=== PATIENT | male | born 1955 | race Caucasian/White ===

== ENCOUNTER 2020-07-28 10:11 | Inpatient (IN) | payer OTHER ==
[~2020-07-28] VITALS: Ht 188 cm; Wt 93.9 kg
[~2020-07-28 10:11] MED LIST: AMLODIPINE BESYL5 MG PO; LOSARTAN POTAS100 MG PO; METOPROLOL SUCC50 MG PO
[2020-07-28] MEDS ORDERED: PANTOPRAZOLE 40 MG 10ML VIAL IV STA (10:24)
[2020-07-28] MEDS ORDERED: ONDANSETRON HCL INJ 2MG/ML 2ML 2 MG/ML VIAL IV STA (10:24)
[2020-07-28] MEDS ORDERED: MORPHINE SULFATE INJ 4 MG/ML INJ 1ML IV STA (10:49)
[2020-07-28 11:18] LABS: BASOPHILS % 0.3 % (0.0-1.0); EOSINOPHILS % 0.1 % (0.0-6.0); HEMATOCRIT 36.6 % (38.2-49.6); HEMOGLOBIN 11.9 g/dL (14.0-18.0); LYMPHOCYTES # (AUTO) 0.5 (1.0-3.2); LYMPHOCYTES % 6.1 % (18.0-39.1); MEAN CORPUSCULAR HEMOGLOBIN 28.3 pg (28-32); MEAN CORPUSCULAR HGB CONC 32.5 g/dL (31-35); MEAN CORPUSCULAR VOLUME 87.1 fL (81-99); MONOCYTES # (AUTO) 0.4 (0.2-0.8); MONOCYTES % 5.3 % (4.4-11.3); NEUTROPHILS # (AUTO) 6.6 (2.1-6.9); NEUTROPHILS % 87.3 % (38.7-80.0); PLATELET COUNT 444 x10e3/uL (140-360); RED CELL DISTRIBUTION WIDTH 24.8 % (11.7-14.4)
[2020-07-28 11:20] LABS: CLARITY,URINE CLEAR (CLEAR); COLOR,URINE YELLOW (YELLOW)
[2020-07-28 11:21] LABS: KETONES,URINE NEGATIVE (NEGATIVE); LEUKOCYTE ESTERASE ,URINE NEGATIVE (NEGATIVE); NITRITE,URINE NEGATIVE (NEGATIVE); PROTEIN,URINE DIPSTICK 1+ (NEGATIVE); URINE UROBILINOGEN 1 mg/dL (0.2 - 1)
[2020-07-28 11:22] LABS: BILIRUBIN,URINE LARGE (NEGATIVE)
[2020-07-28 11:25] LABS: PROTHROMBIN TIME 13.7 seconds (11.9-14.5)
[2020-07-28 11:26] LABS: PARTIAL THROMBOPLASTIN TIME 26.1 seconds (23.8-35.5)
[2020-07-28 11:30] LABS: BACTERIA,URINE RARE /HPF; EPITHELIAL CELLS,URINE FEW /LPF; RBC,URINE 0-5 /HPF (0-5); WBC,URINE (MAN) 0-5 /HPF (0-5)
[2020-07-28 11:37] LABS: ALBUMIN 3.2 g/dL (3.5-5.0); ALBUMIN/GLOBULIN RATIO 1.1 (0.8-2.0); ANION GAP 23.9 mmol/L (8-16); CALCIUM 11.7 mg/dL (8.4-10.2); CREATININE, SERUM 3.51 mg/dL (0.72-1.25); MAGNESIUM 2.1 MG/DL (1.3-2.1); POTASSIUM 4.9 mmol/L (3.5-5.1)
--- NOTE | 2020-07-28 11:37 | Diagnostic Imaging Report ---
EXAMINATION: CHEST SINGLE (PORTABLE) INDICATION: ^ABD PAIN ^20200728 ^1056 COMPARISON: None FINDINGS: AP view TUBES and LINES: None. LUNGS: Lungs are well inflated. No focal lung consolidation. There is no evidence of pneumonia or pulmonary edema. PLEURA: No pleural effusion or pneumothorax. HEART AND MEDIASTINUM: The cardiomediastinal silhouette is unremarkable. BONES AND SOFT TISSUES: No acute osseous lesion. Soft tissues are unremarkable. UPPER ABDOMEN: No free air under the diaphragm. IMPRESSION: No acute thoracic radiographic abnormality. Signed by: Carmelo Nolasco MD on 07/28/2020 11:34 AM
[2020-07-28 11:43] LABS: CREATINE KINASE MB 0.9 ng/mL (0-5.0)
[2020-07-28] MEDS ORDERED: SODIUM CHLORIDE 0.9% 500ML 500 ML IV ONE (11:45)
[2020-07-28] MEDS ORDERED: VANCOMYCIN 1GM/NS 250 ML 250 ML IV ONE (11:45)
[2020-07-28] MEDS ORDERED: CEFEPIME 1GM/NS 0.9% 50 ML 50 ML IV SCH (11:45)
[2020-07-28] MEDS ORDERED: MORPHINE SULFATE INJ 4 MG/ML INJ 1ML IV PRN (13:15)
--- OUTSIDE RECORDS SUMMARY | 2020-07-28 13:26 | XMS REPORT | Continuity of Care Document ---
Author Author [facility] Organization [facility] Address [address] [place] [address] Dr. Aquino. [address] [place] [id number] Phone Unavailable Care Team Providers Care Dentistry Professor Name Role Phone Deepika SALAZAR Attphys Unavailable Problems This patient has no known problems. Allergies, Adverse Reactions, Alerts This patient has no known allergies or adverse reactions. Medications This patient has no known medications. Procedures This patient has no known procedures. Results Test Description Test Time Test Comments Results Result Comments Source CHEST SINGLE (PORTABLE) 2020-07-28 11:33:[address] [address] Patient Name: SEPIDEH BERMUDEZ MR #: [id number] : 1955 Age/Sex: 64/M Req #: [id number] Adm Physician: Ordered by: TRISTIN SALAZAR MD Report #: [id number] Location: ER Room/Bed: Procedure: [id number] DX/CHEST SINGLE (PORTABLE) Exam Date: 07/28/20 Exam Time: 105 REPORT STATUS: Signed EXAMINATION: CHEST SINGLE (PORTABLE) INDICATION: ABD PAIN 20200728 105 COMPARISON: None FINDINGS: AP view TUBES and LINES: None. LUNGS: Lungs are well inflated. No focal lung consolidation. There is no evidence of pneumonia or pulmonary edema. PLEURA: No pleural effusion or pneumothorax. HEART AND MEDIASTINUM: The cardiomediastinal silhouette is unremarkable. BONES AND SOFT TISSUES: No acute osseous lesion. Soft tissues are unremarkable. UPPER ABDOMEN: No free air under the diaphragm. IMPRESSION: No acute thoracic radiographic abnormality. Signed by: Dorie Zavala MD on 07/28/2020 11:34 AM Dictated By: DORIE ZAVALA MD 1134 Transcribed By: XIAO on 07/28/20 1134 COPY TO: TRISTIN SALAZAR MD
--- NOTE | 2020-07-28 13:40 | Diagnostic Imaging Report ---
EXAM: CT Abdomen and Pelvis WITHOUT intravenous contrast INDICATION: Abdominal pain, jaundice COMPARISON: Chest radiograph of earlier the same day TECHNIQUE: Abdomen and pelvis were scanned utilizing a multidetector helical scanner from the lung base to the pubic symphysis without administration of IV contrast. Coronal and sagittal reformations were obtained. IV CONTRAST: None ORAL CONTRAST: None COMPLICATIONS: None RADIATION DOSE: Total DLP: 483 mGy*cm Dose modulation, iterative reconstruction, and/or weight based adjustment of the mA/kV was utilized to reduce the radiation dose to as low as reasonably achievable. FINDINGS: LOWER THORAX: Normal. HEPATOBILIARY: Innumerable hypodense masses throughout the right and left liver, the largest of which measures up to approximately 6 cm. SPLEEN: No splenomegaly. PANCREAS: Pancreatic head not optimally visualized on this noncontrast study. No definite mass or ductal dilation. ADRENALS: No adrenal nodules. KIDNEYS/URETERS: No hydronephrosis, stones, or solid mass lesions. PELVIC ORGANS/BLADDER: Unremarkable. PERITONEUM / RETROPERITONEUM: Moderate volume ascites in the abdomen and pelvis. LYMPH NODES: No lymphadenopathy. VESSELS: Mild atherosclerotic calcifications of the nonaneurysmal abdominal aorta and major branches. GI TRACT: Segmental wall thickening of the ascending and proximal transverse colon. No bowel obstruction. BONES AND SOFT TISSUES: Unremarkable. IMPRESSION: Innumerable hypodense masses throughout the right and left liver measure up to 6 cm, highly concerning for metastatic disease. Segmental wall thickening of the ascending and proximal transverse colon without bowel obstruction. Findings may be infectious or inflammatory in etiology however neoplasm cannot be excluded, particularly in the setting of liver metastases. Moderate ascites. Signed by: Rafia Rajan MD on 07/28/2020 1:36 PM
--- NOTE | 2020-07-28 14:47 | Emergency Department Note ---
History of Present Illnes History of Present Illness Chief Complaint: Abdominal Complaints History of Present Illness This is a 64 year old male PATIENT IN FROM HOME WITH COMPLAINTS OF ABDOMINAL PAIN X 5 DAYS, ABDOMINAL DISTENTION X 2 DAYS. PATIENT WITH DISTENDED ABDOMEN, JAUNDICED. PATIENT RATES PAIN 10/10. STATES HE IS SUPPOSED TO HAVE A COLONOSCOPY TOMORROW FOR EVALUATION OF POSSIBLE COLON CANCER. PATIENT ALERT AND ORIETNED, RESP EVEN AND NONLABORED. Historian: Patient, Manager Assisted Living/EMS Arrival Mode: [place] Cell Repairer Required: No Onset (how long ago): day(s) (PAIN X 5 DAYS, ABD DISTENSION X 2 DAYS) Location: ABDOMEN Quality: PAIN Radiation: Reports non-radiation Severity: moderate Onset quality: gradual Timing of current episode: constant Progression: worsening Chronicity: new Context: Denies recent illness Relieving factors: none Exacerbating factors: none Associated symptoms: Reports denies other symptoms, Reports other (POSITIVE WEIGHT LOSS) Treatments prior to arrival: none Past Medical/Family History Physician Review I have reviewed the patient's past medical and family history. Any updates have been documented here. Past Medical History Recent Fever: No Clinical Suspicion of Infectio: No New/Unexplained Change in Ment: No Past Medical History: Hypertension Past Surgical History: None Social History Smoking Cessation: Never Smoker Counseling Performed: No Alcohol Use: None Any Illegal Drug Use: No TB Exposure/Symptoms: No Physically hurt or threatened: No Family History Family history of heart diseas: No Other Any Pre-Existing Lines (PICC,: No Review of Systems Review of Systems Constitutional: Reports no symptoms EENTM: Reports no symptoms Cardiovascular: Reports no symptoms Respiratory: Reports no symptoms Gastrointestinal: Reports as per HPI Genitourinary: Reports no symptoms Musculoskeletal: Reports no symptoms Integumentary: Reports no symptoms Neurological: Reports no symptoms Psychological: Reports no symptoms Endocrine: Reports no symptoms Hematological/Lymphatic: Reports no symptoms Physical Exam Related Data Allergies: Coded Allergies: No Known Allergies (Unverified , 07/21/20) Triage Vital Signs Vital Signs Date Time Temp Pulse Resp B/P (MAP) Pulse Ox O2 Delivery O2 Flow Rate FiO2 07/28/20 10:11 98.2 96 19 127/42 100 Room Air Vital signs reviewed: Yes Physical Exam CONSTITUTIONAL Constitutional: Present cachectic, Present ill appearing (CHRONICALLY, NO ACUTE DISTRESS) HENT HENT: Present normocephalic, Present atraumatic, Present oropharynx clear/moist, Present nose normal HENT L/R: Present left ext ear normal, Present right ext ear normal EYES Eyes: Reports PERRL, Reports scleral icterus NECK Neck: Present ROM normal PULMONARY Pulmonary: Present effort normal, Present breath sounds normal CARDIOVASCULAR Cardiovascular: Present regular rhythm, Present heart sounds normal, Present capillary refill normal, Present normal rate GASTROINTESTINAL Abdominal: Present soft, Present distension (MARKED, WITH FLUID WAVE), Present tender (MODERATE DIFFUSE), Present guarding; Absent rebound, Absent left CVA tenderness, Absent right CVA tenderness GENITOURINARY Genitourinary: Present exam deferred SKIN Skin: Present warm, Present dry, Present jaundiced MUSCULOSKELETAL Musculoskeletal: Present ROM normal NEUROLOGICAL Neurological: Present alert, Present oriented x 3, Present no gross motor or sensory deficits PSYCHOLOGICAL Psychological: Present mood/affect normal, Present judgement normal Results Laboratory Result Diagram: 07/28/20 1040 07/28/20 1040 Laboratory Laboratory Tests Test 07/28/20 10:53 07/28/20 10:40 Urine Color Yellow (YELLOW) Urine Clarity Clear (CLEAR) Urine pH 5.5 (5 - 7) Urine Specific Wayne 1.015 (1.010-1.025) Urine Protein 1+ (NEGATIVE) Urine Glucose (UA) Negative (NEGATIVE) Urine Ketones Negative (NEGATIVE) Urine Blood Negative (NEGATIVE) Urine Nitrite Negative (NEGATIVE) Urine Bilirubin Large (NEGATIVE) Urine Urobilinogen 1 mg/dL (0.2 - 1) Urine Leukocyte Esterase Negative (NEGATIVE) Urine RBC 0-5 /HPF (0-5) Urine WBC 0-5 /HPF (0-5) Urine Epithelial Cells Few /LPF (NONE) Urine Bacteria Rare /HPF (NONE) White Blood Count 7.53 x10e3/uL (4.8-10.8) Red Blood Count 4.20 x10e6/uL (4.3-5.7) Hemoglobin 11.9 g/dL (14.0-18.0) Hematocrit 36.6 % (38.2-49.6) Mean Corpuscular Volume 87.1 fL (81-99) Mean Corpuscular Hemoglobin 28.3 pg (28-32) Mean Corpuscular Hemoglobin Concent 32.5 g/dL (31-35) Red Cell Distribution Width 24.8 % (11.7-14.4) Platelet Count 444 x10e3/uL (140-360) Neutrophils (%) (Auto) 87.3 % (38.7-80.0) Lymphocytes (%) (Auto) 6.1 % (18.0-39.1) Monocytes (%) (Auto) 5.3 % (4.4-11.3) Eosinophils (%) (Auto) 0.1 % (0.0-6.0) Basophils (%) (Auto) 0.3 % (0.0-1.0) Neutrophils # (Auto) 6.6 (2.1-6.9) Lymphocytes # (Auto) 0.5 (1.0-3.2) Monocytes # (Auto) 0.4 (0.2-0.8) Eosinophils # (Auto) 0.0 (0.0-0.4) Basophils # (Auto) 0.0 (0.0-0.1) Absolute Immature Granulocyte (auto 0.07 x10e3/uL (0-0.1) Prothrombin Time 13.7 seconds (11.9-14.5) Prothromb Time International Ratio 1.00 Activated Partial Thromboplast Time 26.1 seconds (23.8-35.5) Sodium Level 139 mmol/L (136-145) Potassium Level 4.9 mmol/L (3.5-5.1) Chloride Level 102 mmol/L (98-107) Carbon Dioxide Level 18 mmol/L (22-29) Anion Gap 23.9 mmol/L (8-16) Blood Urea Nitrogen 62 mg/dL (7-26) Creatinine 3.51 mg/dL (0.72-1.25) Estimat Glomerular Filtration Rate 18 ML/MIN (60-) BUN/Creatinine Ratio 18 (6-25) Glucose Level 90 mg/dL (74-118) Lactic Acid Level 3.5 mmol/L (0.5-2.0) Calcium Level 11.7 mg/dL (8.4-10.2) Magnesium Level 2.1 MG/DL (1.3-2.1) Total Bilirubin 17.0 mg/dL (0.2-1.2) Aspartate Amino Transf (AST/SGOT) 171 IU/L (5-34) Alanine Aminotransferase (ALT/SGPT) 117 IU/L (0-55) Alkaline Phosphatase 864 IU/L (40-150) Creatine Kinase 219 IU/L (30-200) Creatine Kinase MB 0.90 ng/mL (0-5.0) Troponin I 0.009 ng/mL (0-0.300) Total Protein 6.2 g/dL (6.5-8.1) Albumin 3.2 g/dL (3.5-5.0) Globulin 3.0 g/dL (2.3-3.5) Albumin/Globulin Ratio 1.1 (0.8-2.0) Amylase Level 22 U/L (25-125) Lipase 15 U/L (8-78) Lab results reviewed: Yes Imaging Imaging results reviewed: Yes Procedures 12 Lead ECG Interpretation ECG Interpretation : ECG: ECG 1 Cell Repairer: Interpreted by ED physician Date: Jul 28, 2020 Time: 10:34 Rhythm: sinus rhythm Rate: normal (85) QRS axis: normal ST segments normal: Yes T wave inversion: V3, V4, V5, V6 T waves flattening: I, aVL Clinical Impression: abnormal ECG Assessment & Plan Medical Decision Making MDM JAUNDICED WITH ABD PAIN/DISTENSION - CBC, CHEM, LIPASE, UA, CT ABD/PELVIS, PT/PTT - EVAL FOR LIVER FAILURE, RENAL INSUFF, ASCITES, SPONT BACT PERITONITIS, COLONIC MASS, LIVER METS OR MASS, CHOLECYSTITIS, CHOLANGITIS, CHOLANGIOCARCINOMA Reassessment Reassessment LACTIC ACID ELEVATED BUT I DO NOT FEEL THIS IS DUE TO SEPSIS, I THINK ELEVATION IS DUE TO LIVER DISEASE ADMIT TO DR DOMINGUEZ WHO AGREES WITH PLAN - HE WILL CALL DR GARCES FOR CONSULT Assessment & Plan Final Impression: (1) Metastases to the liver (2) Jaundice (3) Cirrhosis (4) Ascites (5) Abdominal pain Depart Disposition: ADMITTED Last Vital Signs Date Time Temp Pulse Resp B/P (MAP) Pulse Ox O2 Delivery O2 Flow Rate FiO2 07/28/20 11:05 104 22 132/76 100 Room Air 07/28/20 10:11 98.2 Home Meds Reported Medications Amlodipine Besylate (AMLODIPINE BESYLATE) 5 Mg Tablet, 5 MG PO DAILY, #30 TAB 07/21/20 Metoprolol Succinate (METOPROLOL SUCCINATE) 50 Mg Tab.er.24h, 50 MG PO DAILY, MG 07/21/20 Losartan Potassium (LOSARTAN POTASSIUM) 100 Mg Tablet, 100 MG PO DAILY, TAB 07/21/20 Medications in the ED Pantoprazole Sodium 40 mg ONCE STAT IV Last administered on 07/28/20at 11:34; Admin Dose 40 MG; Start 07/28/20 at 10:24; Stop 07/28/20 at 10:51; Status DC Morphine Sulfate 4 mg ONCE STAT IV Last administered on 07/28/20at 11:34; Admin Dose 4 MG; Start 07/28/20 at 10:49; Stop 07/28/20 at 10:50; Status DC Ondansetron HCl 4 mg ONCE STAT IV Last administered on 07/28/20at 11:34; Admin Dose 4 MG; Start 07/28/20 at 10:24; Stop 07/28/20 at 10:51; Status DC Sodium Chloride 500 ml @ 0 mls/hr Q0M ONCE IV Last administered on 07/28/20at 12:18; Admin Dose 250 MLS/HR; Start 07/28/20 at 11:45; Stop 07/28/20 at 11:46; Status DC Cefepime HCl 50 ml @ 100 mls/hr Q12H IV Last administered on 07/28/20at 12:18; Admin Dose 100 MLS/HR; Start 07/28/20 at 11:45; Stop 08/04/20 at 11:44 Vancomycin HCl 250 ml @ 167 mls/hr NOW ONCE IV Last administered on 07/28/20at 12:54; Admin Dose 167 MLS/HR; Start 07/28/20 at 11:45; Stop 07/28/20 at 13:14; Status DC TRISTIN SALAZAR MD Jul 28, 2020 14:47
--- NOTE | 2020-07-28 14:52 | NUR ---
1st attempt to give report, no answer
[2020-07-28 15:23] VITALS: BP 120/75
--- NOTE | 2020-07-28 15:38 | NUR ---
Received report from JESSIE Garcia in ER at 1502. Patient brought to floor at 1515. Patient was oriented to room, procedures, and plan of care. Patient has call light within reach and has no other issues or complaints at this time.
[2020-07-28] MEDS ORDERED: MINOXIDIL2.5 MG PO (15:49)
--- NOTE | 2020-07-28 16:06 | NUR ---
Patient states he has recently lost weight without trying. He started losing significant weight around mid June and Dr. Sandoval was aware. Patient had a scheduled colonoscopy for tomorrow 07/29/20 but could not deal with the pain any longer.
[2020-07-28] MEDS ORDERED: SODIUM CHLORIDE 0.9% 1000ML 1,000 ML IV SCH (16:15)
[2020-07-28] MEDS ORDERED: CHLORPROMAZINE HCL 25 MG TAB PO PRN (17:45)
[2020-07-28] MEDS: PIPERACILLIN/TAZO 2.25 GM 50 ML IV SCH ×2 (17:45→23:39)
[2020-07-28] MEDS ORDERED: CITRATE OF MAGNESIA 300ML BOTTLE PO ONE (18:00)
[2020-07-28] MEDS ORDERED: CHLORPROMAZINE HCL 25 MG TAB PO ONE (18:30)
[2020-07-28] MEDS: ONDANSETRON HCL INJ 2MG/ML 2ML 2 MG/ML VIAL IV PRN ×2 (18:44→22:30)
[2020-07-28 19:00] LABS: CREATINE KINASE MB 0.9 ng/mL (0-5.0)
--- NOTE | 2020-07-28 19:23 | NUR ---
Received change of shift report from AM nurse. Walking rounds completed.
[2020-07-28 20:00] VITALS: BP 113/55
--- NOTE | 2020-07-28 20:31 | History and Physical ---
PRIMARY CARE PHYSICIAN: Dr. Kamari Quach. CONSULTANTS: 1. Dr. Mimi Painting, cigarette package examiner. 2. Dr. Pankaj Sandoval, Gastroenterology. 3. Dr. Herber Mendez, Nephrology. CHIEF COMPLAINT: Jaundice, abdominal distention, pain, ascites, acute kidney injury, and abnormal CT scan of abdomen and pelvis associated with masses in the liver and thickening of the colon. HISTORY OF PRESENT ILLNESS: The patient is a 64-year-old male with complaint of abdominal pain and distention for the past week. The pain increased for the past 2 days. The patient is supposed to see Dr. Pankaj Sandoval for endoscopy, but because of increasing distention and pain, the patient came to the hospital. Here in the hospital, the patient is found to have jaundice with total bilirubin of greater than 17. The abdominal CT scan showed numerous liver lesions consistent with metastases. He also has ascites, abdominal distention, and also increase in liver enzyme along with that also thickening of the colon. The patient is supposed to have colonoscopy previously for working up for possible malignancy. The patient is now admitted for further evaluation and treatment. IV antibiotic initiated in the emergency room. The patient's MRCP is ordered. Consultants ordered as well. IV fluids gently. Repeat lab workup. We will further workup for malignancy. PAST MEDICAL HISTORY: Hypertension, recent abdominal pain and distention, weight loss. PAST SURGICAL HISTORY: Noncontributory. SOCIAL HISTORY: The patient does not smoke or use alcohol. No regular drugs. ALLERGIES: NO KNOWN ALLERGIES. HOME MEDICATIONS: On losartan and minoxidil. REVIEW OF SYSTEMS: As mentioned above. PHYSICAL EXAMINATION: VITAL SIGNS: Temperature is 98, blood pressure 127/42, pulse rate is 96, respirations 20. GENERAL: The patient is not in any distress. HEENT: Normocephalic and atraumatic. The patient has jaundice, icteric. NECK: Grossly supple. No JVD. PULMONARY: Diminished breath sounds at the bases with rales. CARDIOVASCULAR: S1 and S2. Regular rate and rhythm. ABDOMEN: Distention, generalized tenderness without any guarding or rebound. EXTREMITIES: Positive for edema. NEUROLOGIC: Moving all extremities without any focal deficit. LABORATORY DATA: Coagulation; INR is 1.0. Chemistry; sodium 139, potassium 4.9, chloride 102, bicarb 18, BUN 62, creatinine 2.5, glucose is 90. Lactic acid is 3.5, calcium is 11.7, total bilirubin is 17, AST 171, ALT 117, alkaline phosphate 826, amylase is 22, lipase is 15. WBC 7.5, hemoglobin 11.9, hematocrit 33.6, and platelets is 444. Urinalysis is positive for protein, negative for leukocyte esterase, negative bacteria. CT scan of the abdomen and pelvis showed that the patient had numerable hypodense masses throughout the right and left liver, measures up to 6 cm. There is high concern for metastatic disease. There is also segmental wall thickening of the ascending and proximal transverse colon without bowel obstruction. IMPRESSION: 1. Liver metastases with mass. Malignancy sources workup still pending. 2. Thickening of the colon, will need endoscopy. 3. Jaundice. Rule out obstructive jaundice with further workup. MRCP ordered. 4. Acute kidney failure. We will place Escobar catheter. 5. Abdominal ascites, most likely malignancy. PLAN: Consult Nephrology, Gastroenterology, and oncologist. MRCP. IV fluids gently. Escobar catheter placed. Empiric antibiotic with Zosyn. Repeat lab work. Correct electrolytes if needed. The patient may need paracentesis. We will continue to monitor this patient closely. Pain control. PPI and blood pressure control, and we will follow up on the patient's status. MD VINCE Reynoso/JOHN /[id number]
[2020-07-28] MEDS: MORPHINE SULFATE INJ 4 MG/ML INJ 1ML IV PRN ×2 (20:33→22:29)
--- NOTE | 2020-07-28 20:58 | Diagnostic Imaging Report ---
EXAM: CT Chest WITHOUT contrast INDICATION: Liver masses, liver failure, renal failure COMPARISON: Same day chest x-ray. TECHNIQUE: Chest was scanned utilizing a multidetector helical scanner from the lung apex through the level of the adrenal glands without administration of IV contrast. Absence of intravenous contrast decreases sensitivity for detection of lymphadenopathy and vascular pathology. Coronal and sagittal reformations were obtained. Routine protocol was performed. IV CONTRAST: None COMPLICATIONS: None RADIATION DOSE: Total DLP: 419.88 mGy*cm Estimated effective dose: (DLP x 0.014 x size factor) mSv CTDIvol has been reviewed. It is below the limits set by the Radiation Protocol Committee (RPC). Dose modulation, iterative reconstruction, and/or weight based adjustment of the mA/kV was utilized to reduce the radiation dose to as low as reasonably achievable. FINDINGS: LINES/ TUBES: None. LUNGS AND AIRWAYS: The lungs are unremarkable. Airways are normal. There is a 2 mm nodules in the right middle lobe (series 2 image 69) and right apex (series 402 image 67). No suspicious pulmonary nodule/mass. There is left basilar atelectasis. PLEURA: The pleural spaces are clear. HEART AND MEDIASTINUM: The thyroid gland is normal. No mediastinal, hilar or axillary lymphadenopathy. The heart is normal in size with atherosclerotic calcification of the coronary vessels and trace pericardial effusion. UPPER ABDOMEN: There are small pockets of air anterior to the liver and within the kodak hepatis which are new since CT of the abdomen/pelvis performed earlier today. There is a small hiatal hernia. Redemonstration of small ascites and innumerable liver lesions. Please see same day CT of the abdomen/pelvis for complete details of the abdomen. BONES: There are degenerative changes in the thoracic spine with exaggerated kyphosis. SOFT TISSUES: Unremarkable. IMPRESSION: 1. New air pockets anterior to the liver and within the kodak hepatis suggestive of pneumoperitoneum. 2. Normal heart size with atherosclerotic calcification of the coronary vessels and trace pericardial effusion. 3. 2 mm pulmonary nodules in the right lung which appear benign. Signed by: Fang Youssef MD on 07/28/2020 8:54 PM
--- NOTE | 2020-07-28 21:26 | Diagnostic Imaging Report ---
EXAM: MR Abdomen WITHOUT and WITH Contrast Magnetic Resonance Cholangiopancreatography (M.R.C.P.) INDICATION: Jaundice and abdominal pain. COMPARISON: Same day CT of the abdomen/pelvis TECHNIQUE: Multiplanar and multisequence imaging was performed of the abdomen without and with contrast. T1-weighted, T2-weighted images, T1-weighted in and [id number], and Diffusion weighted images. Dynamic, post gadolinium T1-weighted spoiled gradient echo scans. M.R.C.P. Technique: Multiplanar, multisequence MRCP was performed, with sequences including coronal turbo spin-echo T1-weighted scans, [facility] MRCP scans, coronal spin, coronal MPR 2, [facility] 3[facility] HR, [facility] MRCP TRIPLETT. IV Contrast: 15 mL of Gadavist gadolinium Oral Contrast: None Medications: None COMPLICATIONS: None FINDINGS: LOWER THORAX: Unremarkable. HEPATOBILIARY: There is redemonstration of innumerable T2 hyperintense masses throughout the liver suspicious for metastatic disease. The liver has an overall nodular contour. No biliary ductal dilation. GALLBLADDER: No radio-opaque stones or sludge. No wall thickening. SPLEEN: No splenomegaly. PANCREAS: No focal masses or ductal dilatation. ADRENALS: No adrenal nodules KIDNEYS/URETERS: Kidneys enhance symmetrically. No hydronephrosis. No cystic or solid mass lesions. No stones. GI TRACT: Segmental wall thickening of the ascending and proximal transverse colon described on comparison CT of the abdomen/pelvis are not well appreciated on current study. No abnormal distention or evidence of bowel obstruction. LYMPH NODES: No lymphadenopathy. VESSELS: Unremarkable. PERITONEUM / RETROPERITONEUM: There is moderate volume ascites. BONES: Unremarkable. SOFT TISSUES: Unremarkable. IMPRESSION: 1. No evidence of intrahepatic or extrahepatic biliary ductal dilatation. No filling defects within the common bile ducts to suggest choledocholithiasis. 2. Redemonstration of innumerable masses throughout the liver suspicious for metastatic disease. Complete metastatic workup should be considered. 3. Moderate volume ascites. Signed by: Fang Youssef MD on 07/28/2020 9:23 PM
--- NOTE | 2020-07-28 22:58 | NUR ---
Placed a 16F in and output of 500cc susan cloored urine. Patient tolerated well. Pain and nausea meds given for pain of 6-7 to back and abd. Continue monitor.
--- NOTE | 2020-07-28 23:00 | NUR ---
Correction urine from foster only 300cc.
[2020-07-29] VITALS (20 sets, daily range): BP systolic 78–127; BP diastolic 43–83
--- NOTE | 2020-07-29 | NUR ---
Call MD to inform of severe pain. Orders received. Patient received additional meds.
[2020-07-29] MEDS: MORPHINE SULFATE INJ 4 MG/ML INJ 1ML IV PRN ×4 (00:30→16:24)
--- NOTE | 2020-07-29 03:00 | NUR ---
Patient requiring pain meds [id number] as ordered. Continue monitor.
[2020-07-29] MEDS: ONDANSETRON HCL INJ 2MG/ML 2ML 2 MG/ML VIAL IV PRN (03:46)
--- NOTE | 2020-07-29 05:00 | NUR ---
Patient BP down to 83/51 poss due to pain meds. Levila check at 96/56. Will hold pain med for now.
[2020-07-29] MEDS: PIPERACILLIN/TAZO 2.25 GM 50 ML IV SCH ×3 (05:11→20:49)
[2020-07-29 05:15] LABS: BASOPHILS % 0.5 % (0.0-1.0); HEMATOCRIT 38.9 % (38.2-49.6); HEMOGLOBIN 12.2 g/dL (14.0-18.0); LYMPHOCYTES # (AUTO) 0.4 (1.0-3.2); MEAN CORPUSCULAR HGB CONC 31.4 g/dL (31-35); MEAN CORPUSCULAR VOLUME 92.4 fL (81-99); MONOCYTES # (AUTO) 0.3 (0.2-0.8); MONOCYTES % 5.8 % (4.4-11.3); NEUTROPHILS # (AUTO) 3.6 (2.1-6.9); PLATELET COUNT 463 x10e3/uL (140-360); RED BLOOD COUNT 4.21 x10e6/uL (4.3-5.7); RED CELL DISTRIBUTION WIDTH 25.3 % (11.7-14.4)
[2020-07-29 05:38] LABS: ALBUMIN 2.9 g/dL (3.5-5.0); ANION GAP 28.5 mmol/L (8-16); CALCIUM 10.4 mg/dL (8.4-10.2); CREATININE, SERUM 4.36 mg/dL (0.72-1.25); POTASSIUM 5.5 mmol/L (3.5-5.1)
[2020-07-29 06:09] LABS: CREATINE KINASE MB 0.8 ng/mL (0-5.0)
[2020-07-29 06:32] LABS: BAND NEUTROPHILS % (MANUAL) 8 %; LYMPHOCYTES % (MANUAL) 13 % (19-48); MONOCYTES % (MANUAL) 6 % (3.4-9.0); NEUTROPHILS % (MANUAL) 73 % (40-74); PLATELET ESTIMATE SLIGHTLY INCREASED
[2020-07-29 06:33] LABS: POLYCHROMASIA FEW; TARGET CELLS FEW
[2020-07-29 06:34] LABS: ANISOCYTOSIS MODERATE; PLATELET MORPHOLOGY COMMENT FEW LARGE
[2020-07-29 06:35] LABS: RBC MORPHOLOGY COMMENT ABNORMAL
[2020-07-29 06:36] LABS: GIANT PLATELETS FEW
[2020-07-29 09:04] LABS: FERRITIN 2227.94 ng/mL (21.81-274.66)
--- NOTE | 2020-07-29 09:07 | NUR ---
REPORT GIVEN TO ICU NURSE. PATIENT IS BEING TRANSFERRED TO ICU ROOM 189 ORDERED.
[2020-07-29] MEDS ORDERED: SODIUM CHLORIDE 0.9% 1000ML 1,000 ML IV SCH ×3 (09:45→16:00)
[2020-07-29] MEDS: PANTOPRAZOLE 40 MG 10ML VIAL INJ SCH (10:41)
[2020-07-29] MEDS: SODIUM BICARBONATE 8.4% 50 ML in DEXTROSE 5%/0.45% SOD CHL 1,000 ML IV SCH ×2 (10:45→20:14)
[2020-07-29] MEDS ORDERED: SODIUM CHLORIDE 0.9% 500ML 500 ML IV ONE (10:45)
[2020-07-29] MEDS ORDERED: HEPARIN SOD (PORCINE) 1000 UNIT/ML SDV ONE (11:41)
[2020-07-29] MEDS: IRON SUCROSE 100 MG in SODIUM CHLORIDE 0.9% 100 ML 100 ML IV SCH (13:00)
--- NOTE | 2020-07-29 13:04 | Consultation ---
DATE OF CONSULTATION: 07/29/2020 HISTORY OF PRESENT ILLNESS: The patient is a 64-year-old male, who was admitted to the hospital with complaints of abdominal distention and jaundice. He had a CT scan which showed multiple lesions within the liver, suggestive of metastasis. He was to have colonoscopy for possible malignancy, but this has not been done yet. The patient had a CT scan of abdomen, chest, and pelvis done yesterday and there were findings on CT scan of portal venous gas as well as free intraperitoneal air. The patient has complaints of abdominal pain. Says it is less now, however, though he has not had nausea, vomiting, or fever. PAST MEDICAL HISTORY: Significant for hypertension. He has had recent weight loss and symptoms as stated above. ALLERGIES: HE HAS NO KNOWN ALLERGIES. MEDICATIONS: At home were minoxidil and losartan. PAST SURGICAL HISTORY: It is not known if he has had previous surgeries. FAMILY HISTORY: Noncontributory. SOCIAL HISTORY: The patient does not smoke cigarettes or drink alcohol. REVIEW OF SYSTEMS: As stated above, he has not had any fever. PHYSICAL EXAMINATION: GENERAL: The patient is awake and alert. VITAL SIGNS: Reveal heart rate of 106. He is afebrile. Blood pressure has been low. Most recent one is 92/50. HEENT: Sclerae are icteric. NECK: Has no masses. LUNGS: Equal breath sounds are clear bilaterally. CARDIAC: Tachycardic. Irregular rate and rhythm. ABDOMEN: Distended and diffusely tender with signs of peritonitis diffusely. EXTREMITIES: Somewhat cachectic with no edema. NEUROLOGIC: Grossly intact. LABORATORY TESTS: White blood cell count today is 4.28, hemoglobin 12, and hematocrit 39. There is a left shift differential. Platelet count is normal. Chemistries; BUN is elevated at 69 and creatinine 4.36. Bilirubin is 15.6 and alkaline phosphatase 680. Coagulation tests were normal. ASSESSMENT: A 64-year-old male with acute abdomen with peritonitis, distention, likely perforated viscus. He will need surgery as an emergency. The surgery was explained to the patient including risks, benefits, and alternatives. He understands. He has had the opportunity to ask questions. He is aware of the possible need for colostomy. Thank you for asking me to see Mr. Davenport. MD ION Pelaez/JOHN /[id number]
[2020-07-29] MEDS ORDERED: FENTANYL CITRATE/PF 100MCG/2 ML INJ ONE (13:08)
--- NOTE | 2020-07-29 13:12 | Diagnostic Imaging Report ---
Nontunneled Trialysis catheter insertion History: Renal failure, need for central venous access. Modality: Fluoroscopy and sonography. Sedation: None. Guest Room Inspector: Jordan Foy MD. Manager Asset Management: None. Approach: Left internal jugular vein Estimated blood loss: < 5 cc. Specimen: None. Fluoroscopy Time: 0.3 min. Reference Air Kerma (Ka, r): 1.0 mGy. Technique: Informed written consent was obtained. Discussion of risks, benefits, and alternatives were made with the patient. The patient expressed understanding and agreed to proceed. A universal timeout was performed prior to starting the procedure. All elements maximal sterile barrier technique was utilized for this procedure, including utilization of sterile scrub solution for skin prep, a large sterile sheet to cover the areas of the patient that were not prepped, and hand hygiene, mask, head covering, and sterile gown for performing radiologist and scrub technologist. The skin was anesthetized with 2% lidocaine. Ultrasound evaluation showed a patent and compressible left internal jugular vein, which was punctured under direct real-time ultrasound guidance with a micropuncture needle. An ultrasound image was saved to PACS. A microwire and sheath were placed. A 0.035 inch wire was placed through the sheath into the IVC. The tract was dilated. The 20 cm 13 [place] Trialysis catheter was placed over the wire with its distal tip terminating in the superior right atrium. The ports were flushed and aspirated easily following placement. The lumens were locked with heparin. The catheter was sutured to the skin to secure its placement. Vital signs were monitored throughout the procedure by a nurse, and remained stable. The patient tolerated the procedure well and left the department in the same condition. Results: Spot radiograph of the chest demonstrates the new nonfinal Trialysis catheter to lie in the expected position with its tip overlying the right atrium. Impression: Successful, uncomplicated placement of a left internal jugular non-tunneled Trialysis catheter using sonographic and fluoroscopic guidance. The catheter is ready for immediate use. Signed by: Dr. Jordan Foy MD on 07/29/2020 1:09 PM
[2020-07-29] MEDS ORDERED: SODIUM CHLORIDE 0.9% 1000ML 1,000 ML ONE (15:48)
[2020-07-29] MEDS: MIDODRINE HCL 5 MG TABLET PO SCH (15:57)
[2020-07-29] MEDS: OCTREOTIDE ACETATE 0.1 MG/ML 100MCG AMP SQ SCH ×2 (15:57→22:39)
[2020-07-29] MEDS: SODIUM CHLORIDE 0.9% 250ML IRRIG IR SCH ×3 (15:59→23:30)
[2020-07-29] MEDS ORDERED: PROPOFOL IV EMULSION 10 MG/ML 50 ML VIAL IV PRN (16:15)
[2020-07-29] MEDS ORDERED: PROPOFOL IV EMULSION 10MG/ML 100 ML IV SCH (16:15)
--- NOTE | 2020-07-29 16:41 | Consultation ---
DATE OF CONSULTATION: 07/29/2020 Initial Nephrology Consultation Report I have been kindly asked to see this patient in regard to renal failure. HISTORY OF PRESENT ILLNESS: Mr. Davenport is a 64-year-old male who was admitted because of some abdominal pain and he was jaundiced. Imaging studies revealed that he had multiple lesions in the liver, which were consistent with metastasis. The patient was supposed to have a colonoscopy, which has not been done. I have been asked to see the patient because of an elevated serum creatinine that was 3.5 on admission and now is 4.36. This patient earlier this morning was transferred to the ICU. He became hypotensive. Also his serum creatinine went from 3.5-4.3, and also his serum bicarbonate dropped from 18-13 and the serum potassium was 5.5. The patient states he is not aware that he has been have any CKD in the past and old records are not available, so I do not know what the patient's baseline creatinine is. PAST MEDICAL HISTORY: The patient has a history of hypertension and then as mentioned above recent findings. PAST SURGICAL HISTORY: Noncontributory. MEDICATIONS: At home patient was taking minoxidil and losartan. REVIEW OF SYSTEMS: The patient is jaundiced. He has had some weight loss also over several weeks. PHYSICAL EXAMINATION: VITAL SIGNS: Currently, blood pressure 92/49, pulse is 112. GENERAL: The patient is very drowsy, but does awaken. He is jaundiced. HEENT: The patient has a Trialysis catheter in the left neck area. CARDIOVASCULAR: Tachycardia. LUNGS: Clear to auscultation. ABDOMEN: The patient's abdomen is distended. There is ascites. EXTREMITIES: No edema. LABORATORY RESULTS: Sodium 141, potassium 5.5, chloride 105, bicarbonate 13, BUN and creatinine 69 and 4.36 respectively. Lactic acid at 3.5 yesterday. Total bilirubin 15.6, AST and ALT 135 and 99 respectively. Urinalysis shows 1+ protein, large bilirubin, everything else is negative. IMPRESSION: 1. Acute kidney injury superimposed on chronic kidney disease. 2. Obstructive jaundice. 3. Possible metastatic disease to the liver. 4. Oliguria. 5. High anion gap metabolic acidosis. 6. Hyperkalemia. PLAN: The patient has renal failure. We do not have any old values, so I do not know what his chronic baseline renal function is. However, given the nature of his liver disease and possible metastasis, it is very likely that this is hepatorenal syndrome. He is oliguric, which is consistent with this and his urinalysis also consistent with hepatorenal syndrome. I will check a urine sodium and patient has electrolyte derangements. He is acidotic and hyperkalemic. Lane has been placed and we will go ahead and have him dialyzed for 2 hours for chemical clearance. NSAIDs, JORGE-2 inhibitors, IV contrast should be avoided if possible. He will need octreotide and midodrine also since this is most likely hepatorenal syndrome. The patient's prognosis is significantly guarded. Ather MD PRIYA Valerio/JOHN /[id number]
[2020-07-29] MEDS: PROPOFOL IV EMULSION 10MG/ML 100 ML IV SCH (17:01)
[2020-07-29 17:05] LABS: ABG HCO3 20 mmol/L (22-26); ABG PCO2 38 mmHg (35-45); ABG PH 7.34 (7.35-7.45); ABG PO2 196 mmHg (80-105); ABG TCO2 22
--- NOTE | 2020-07-29 17:28 | Diagnostic Imaging Report ---
EXAMINATION: CHEST SINGLE (PORTABLE) INDICATION: Endotracheal tube placement COMPARISON: chest CT on 07/28/2020. FINDINGS: TUBES and LINES: Endotracheal tube which terminates approximately 6 cm above the jen. There is a subdiaphragmatic enteric tube which courses beyond the [id number]. Additional tubing which projects lateral to the endotracheal tube is likely external to the patient. LUNGS: Normal lung volumes. Lungs are clear. No consolidations. Bibasilar atelectasis. PLEURA: No pleural effusion or pneumothorax. HEART AND MEDIASTINUM: The cardiomediastinal silhouette is unremarkable. BONES AND SOFT TISSUES: No acute osseous lesion. Soft tissues are unremarkable. UPPER ABDOMEN: Pneumoperitoneum seen on recent chest CT is not well appreciated by plain radiograph. IMPRESSION: 1. Endotracheal tube which terminates approximately 6 cm above the jen. 2. No acute intrathoracic abnormality identified. Signed by: Fang Youssef MD on 07/29/2020 5:25 PM
[2020-07-29] MEDS ORDERED: LIDOCAINE HCL 2% LOCAL INJ 5 ML SDV VIAL INJ ONE (17:47)
[2020-07-29] MEDS ORDERED: DEXAMETHASONE SOD PHOS INJ 4 MG/ML VIAL ONE (17:47)
[2020-07-29] MEDS ORDERED: LIDOCAINE HCL 2% JELLY 5 ML TUBE ONE (17:47)
[2020-07-29] MEDS ORDERED: SEVOFLURANE INHAL SOLN 250 ML PEN BTL ONE (17:47)
[2020-07-29] MEDS ORDERED: ETOMIDATE 2 MG/ML 10 ML INJ IV ONE (17:47)
[2020-07-29] MEDS ORDERED: SUCCINYLCHOLINE CHLORIDE 20 MG/ML 10ML VIAL ONE (17:47)
[2020-07-29] MEDS ORDERED: ONDANSETRON HCL INJ 2MG/ML 2ML 2 MG/ML VIAL ONE (17:47)
[2020-07-29] MEDS ORDERED: ROCURONIUM BROMIDE 10 MG/ML 5ML VIAL IV ONE (17:47)
[2020-07-29 18:00] LABS: BASOPHILS % 0.5 % (0.0-1.0); HEMATOCRIT 33.3 % (38.2-49.6); HEMOGLOBIN 10.7 g/dL (14.0-18.0); LYMPHOCYTES # (AUTO) 0.4 (1.0-3.2); MEAN CORPUSCULAR HEMOGLOBIN 29.1 pg (28-32); MEAN CORPUSCULAR HGB CONC 32.1 g/dL (31-35); MEAN CORPUSCULAR VOLUME 90.5 fL (81-99); MONOCYTES # (AUTO) 0.4 (0.2-0.8); MONOCYTES % 5.4 % (4.4-11.3); NEUTROPHILS # (AUTO) 5.7 (2.1-6.9); NEUTROPHILS % 87.2 % (38.7-80.0); PLATELET COUNT 326 x10e3/uL (140-360); RED BLOOD COUNT 3.68 x10e6/uL (4.3-5.7); RED CELL DISTRIBUTION WIDTH 24.7 % (11.7-14.4)
--- NOTE | 2020-07-29 18:00 | NUR ---
0915: Patient received from [facility]. Transferred r/t hypotension. 1200: Pt taken to IR for trialysis placement. Consent verified 1230: Line successfully placed and verified. Dopamine gtt at 10 1400: Pt taken to OR for Ex Lap, possible colostomy/bowel resection. Consent verified. 1525: Pt arrived back from OR. Is intubated. #7.5, 23@teeth. Pt reportedly given 50 Fentanyl, 30 Rocuronium, (?) Etomidate. Will remain intubated overnight per Dr. Medina. Pt has lower midline abdominal incision, closed with carol ann. Dressing CDI. Pt had duodenal ulcer repair, and liver biopsy. 3.5 L ascites fluid drained from abdomen. EBL 25cc. Escobar to remain in place. Total of 3.5L NS given this shift. Bicarb gtt at 100cc/hr. 1800: Bedside dialysis ongoing. Dopamine at 10. Propofol at 10. Bilateral wrist soft restraints, skin intact, no complications. Spoke with sister, Jordana Melara ([phone]).
[2020-07-29 18:16] LABS: ANION GAP 20.9 mmol/L (8-16); CALCIUM 8.7 mg/dL (8.4-10.2); CREATININE, SERUM 4.24 mg/dL (0.72-1.25)
[2020-07-29 18:18] LABS: POTASSIUM 5.9 mmol/L (3.5-5.1)
--- NOTE | 2020-07-29 18:32 | Operative Report ---
DATE OF PROCEDURE: 07/29/2020 SURGEON: Lazaro Solorio MD PREOPERATIVE DIAGNOSES: Perforated hollow viscus, peritonitis, multiple liver masses. POSTOPERATIVE DIAGNOSES: Perforated hollow viscus, peritonitis, multiple liver masses. PROCEDURES: Exploratory laparotomy, closure of perforated duodenal ulcer with omental patch, wedge biopsy of liver mass. SECURITIES RESEARCH ANALYST: None. ANESTHESIA: General endotracheal. INDICATIONS AND FINDINGS: The patient is a 64-year-old male presented with complaints of abdominal pain, abdominal distention. Workup revealed large amount of ascites, some free intraperitoneal air, air in the portal venous system, multiple masses in the liver. At surgery, there was about 2-1/2 L of bilious fluid throughout the peritoneal cavity. There was a perforation in the first portion of duodenum, which was about 3 mm in diameter. There were multiple masses filling up the liver. There was a large amount of hard stool throughout the colon. No definite mass was found in the colon. There was suggestion of a mass in the head of the pancreas though this was not definite, it was hard to visualize the pancreas. There was no mass palpable within the stomach, small bowel had no mass that was palpable. Evaluation of retroperitoneum was limited because of the extensive inflammatory reaction. There was no definite retroperitoneal mass. TECHNIQUE: After adequate general endotracheal anesthesia, the patient in supine position, the abdomen was prepped and draped in sterile fashion with ChloraPrep solution. Through midline incision, the peritoneal cavity was entered. There was a large amount of bilious fluid, which was drained about 2500 mL of bilious fluid was drained, which was non foul smelling. Evaluation of the abdomen revealed area of perforation in the first portion of duodenum. This perforation was closed with two interrupted sutures of 3-0 Vicryl. All remaining bilious fluid was aspirated. Exploration of the abdomen revealed no definite mass in the stomach. There were multiple masses in the liver. There was suggestion of a mass in the head of the pancreas, although this was difficult to visualize. There was a large amount of hard stool throughout the colon. No definite colonic mass could be palpated. This was also difficult to evaluate. There was no mass in the small bowel with one of the masses in the edge of the liver was biopsied using electrocautery. A wedge of the mass was excised. Hemostasis was achieved with electrocautery. Once this was completed, a flap of omentum was developed from the transverse colon and then this was sutured over the duodenal closure using interrupted sutures of 3-0 Vicryl. The peritoneal cavity was irrigated with large volume of warm saline inspected for hemostasis, which was seen to be adequate. It was irrigated further with saline. All fluid aspirated and inspected for hemostasis, which was seen to be adequate. The wound was then closed. The midline fascia was closed with running suture of #1 PDS. Subcutaneous tissue was irrigated with saline. Skin was closed with carol ann. Sterile dressing was applied. The patient tolerated the procedure well. Estimated blood loss was 50 mL. There were no complications. All counts were correct. The patient was taken to the ICU in critical but stable condition. MD FABIÁN PelaezG/MODL /[id number] cc: MD Kamari Donis MD James Tran, MD David Stein, MD Daniel H Darmadi, MD
[2020-07-29] MEDS ORDERED: SODIUM CHLORIDE 0.9% 1000ML 2,000 ML IV PRN (19:00)
[2020-07-29] MEDS ORDERED: HEPARIN SOD (PORCINE) 1000 UNIT/ML SDV IV PRN (19:00)
--- NOTE | 2020-07-29 19:00 | NUR ---
Bedside Report received. Patient in bed with HOB elevated at 30 degrees. Patient Intubated. VENT Fio2 40% PEEP8 RR12 TV500. Lower Abdomen Midline Dressing Noted DRY and Intact. Patient noted on Propofol at 8mcg and Doapmine at 10 mcg. Bedside Dialysis Ongoing. BP 82/67 MAP 74. Bilateral Soft restraints noted. Skin Intact. Escobar noted draining clear yellow urine by Langdon Safety maintained.
[2020-07-29] MEDS: HEPARIN SOD (PORCINE) 5,000 UNIT/ML VIAL SC SCH (21:00)
--- NOTE | 2020-07-29 22:23 | Consultation ---
DATE OF CONSULTATION: 07/29/2020 HISTORY OF PRESENT ILLNESS: This is 64-year-old, who is my heart patient, who presented to the hospital because of abdominal pain and distention, which had been increasing over the last several days. His workup revealed that he has jaundice with the bilirubin as high as 15.6, and he had a CAT scan of the abdomen and pelvis on admission initially, which shows multiple liver mets or masses in the liver measuring up to about 6 cm and segmental thickening of the ascending and proximal transverse colon without bowel obstruction, and also evidence of moderate ascites. However, he developed pneumoperitoneum overnight and he went to surgery today and was found to have a perforated duodenal ulcer with possible pancreatic mass. He is currently intubated in the ICU. PAST MEDICAL HISTORY: Significant for history of hypertension. ALLERGIES: NONE. MEDICATIONS: At home included losartan and minoxidil. SOCIAL HISTORY: Denies any alcohol use. FAMILY HISTORY: Contributory. REVIEW OF SYSTEMS: Denies any chest pain or shortness of breath. Denies any dysphagia, odynophagia. Denies any dysuria, hematuria, or syncopal episode. PHYSICAL EXAMINATION: GENERAL: The patient is intubated, lying in bed, in no acute distress. VITAL SIGNS: Afebrile. HEAD, EYES, EARS, NOSE, AND THROAT: Has ET tube in place. HEART: Regular. LUNGS: Clear. ABDOMEN: Soft. EXTREMITIES: No clubbing. LAB VALUES: This morning potassium 5.5, BUN 69 and creatinine 4.36, AST of 135, ALT of 99, alkaline phosphatase is 660, bilirubin 15.6. CAT scan as mentioned before. He also has an MRCP, which shows again no evidence of and innumerable mass in the liver, possible metastatic disease and also moderate volume ascites. IMPRESSION: 1. Perforated duodenal ulcer. 2. Multiple liver masses, possible metastasis, etiologies or source is unclear. RECOMMENDATION: Continue supportive care in the ICU, awaiting tumor marker and awaiting biopsy from the liver. MD MAYELIN Bob/JOHN /[id number] cc: MD Luis Trent MD
[2020-07-30] VITALS (11 sets, daily range): BP systolic 78–122; BP diastolic 37–73
[2020-07-30] MEDS: PIPERACILLIN/TAZO 2.25 GM 50 ML IV SCH ×4 (01:56→21:00)
[2020-07-30] MEDS: SODIUM CHLORIDE 0.9% 250ML IRRIG IR SCH ×6 (03:00→20:30)
[2020-07-30 04:50] LABS: BASOPHILS # (AUTO) 0.1 (0.0-0.1); BASOPHILS % 0.6 % (0.0-1.0); EOSINOPHILS % 0.3 % (0.0-6.0); HEMATOCRIT 35.5 % (38.2-49.6); HEMOGLOBIN 11.4 g/dL (14.0-18.0); LYMPHOCYTES # (AUTO) 0.6 (1.0-3.2); LYMPHOCYTES % 6.5 % (18.0-39.1); MEAN CORPUSCULAR HGB CONC 32.1 g/dL (31-35); MEAN CORPUSCULAR VOLUME 90.3 fL (81-99); MONOCYTES # (AUTO) 0.6 (0.2-0.8); MONOCYTES % 5.8 % (4.4-11.3); NEUTROPHILS % 82.6 % (38.7-80.0); PLATELET COUNT 315 x10e3/uL (140-360); RED BLOOD COUNT 3.93 x10e6/uL (4.3-5.7)
[2020-07-30 05:13] LABS: ALBUMIN 2.6 g/dL (3.5-5.0); CALCIUM 8.1 mg/dL (8.4-10.2); CREATININE, SERUM 4.05 mg/dL (0.72-1.25)
[2020-07-30 05:16] LABS: BILIRUBIN,DIRECT 11.1 mg/dL (0.0-0.5)
[2020-07-30] MEDS: SODIUM BICARBONATE 8.4% 50 ML in DEXTROSE 5%/0.45% SOD CHL 1,000 ML IV SCH ×2 (05:25→17:00)
[2020-07-30] MEDS: OCTREOTIDE ACETATE 0.1 MG/ML 100MCG AMP SQ SCH ×3 (05:25→21:45)
[2020-07-30] MEDS ORDERED: SODIUM CHLORIDE 0.9% 1000ML 1,000 ML IV ONE (06:30)
--- NOTE | 2020-07-30 07:00 | NUR ---
REPORT Given to RN. Patient in bed with HOB elevated. SAfety Maintained.
[2020-07-30] MEDS ORDERED: SODIUM CHLORIDE 0.9% 500ML 500 ML IV ONE (08:45)
[2020-07-30] MEDS ORDERED: ALBUMIN 25% 25GM 100ML 0.25 GM/ML BTL IV ONE (08:45)
--- NOTE | 2020-07-30 08:54 | Diagnostic Imaging Report ---
EXAMINATION: CHEST SINGLE (PORTABLE) INDICATION: Respiratory failure, abdominal pain COMPARISON: Chest radiograph 07/29/2020 FINDINGS: LINES/TUBES:Endotracheal tube terminates 5 cm above the jen. Enteric tube coils in the distal esophagus with side port and distal tip at the same level in the distal esophagus. Left IJ temporary dialysis catheter terminates at the proximal right atrium. EKG leads overlie the chest. LUNGS:The lungs are moderately inflated. Unchanged mild left basilar opacities. PLEURA:No pleural effusion or pneumothorax. MEDIASTINUM:The cardiomediastinal silhouette appears unchanged in size and shape. BONES/SOFT TISSUES:No acute osseous injury. ABDOMEN:No free air under the diaphragm. IMPRESSION: Enteric tube coils in the distal esophagus and does not enter the stomach. Recommend withdrawal and replacement. Remaining lines and tubes unchanged. Mild left basilar opacities, most likely subsegmental atelectasis. Signed by: Rafia Rajan MD on 07/30/2020 8:51 AM
[2020-07-30] MEDS ORDERED: ALBUMIN 25% 25GM 100ML 200 ML IV ONE (09:00)
[2020-07-30] MEDS: HEPARIN SOD (PORCINE) 5,000 UNIT/ML VIAL SC SCH ×3 (09:00→22:45)
[2020-07-30 09:32] LABS: BAND NEUTROPHILS % (MANUAL) 4 %; LYMPHOCYTES % (MANUAL) 7 % (19-48); MONOCYTES % (MANUAL) 6 % (3.4-9.0); NEUTROPHILS % (MANUAL) 83 % (40-74); NUCLEATED RED BLOOD CELLS 1
[2020-07-30 09:33] LABS: POLYCHROMASIA FEW
[2020-07-30 09:35] LABS: ANISOCYTOSIS MODERATE
[2020-07-30 09:36] LABS: OVALOCYTES FEW; TARGET CELLS FEW
[2020-07-30 09:37] LABS: LARGE PLATELETS FEW; PLATELET MORPHOLOGY COMMENT FEW EDTA CLUMPING; RBC MORPHOLOGY COMMENT ABNORMAL; SCHISTOCYTES A
--- NOTE | 2020-07-30 09:37 | Consultation ---
DATE OF CONSULTATION: Pulmonary Consultation The patient of Dr. Avitia, Dr. Quach, Dr. Solorio, Dr. Mendez, and Dr. Sandoval. 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 History of liver failure, etiology unclear. Suspected metastatic colon cancer. The patient says he has been unable to eat for several days because of nausea and vomiting. He has denies alcohol use. Denies smoking. Denies drug abuse. ALLERGIES: NO KNOWN ALLERGIES. PAST SURGICAL HISTORY: No previous surgical history. FAMILY HISTORY: Positive for colon cancer. MEDICATIONS: According to record, his home medications included losartan and minoxidil, hypertension. PHYSICAL EXAMINATION: GENERAL: He is a tall, thin white male, anxious. VITAL SIGNS: Blood pressure 85/67, pulse 93, and temperature 97.3. HEAD: Normocephalic, atraumatic. Some temporal wasting. LUNGS: Clear. Breath sounds are diminished. HEART: Regular rhythm. ABDOMEN: Distended and tender in the left lower quadrant. EXTREMITIES: Not edematous. IMPRESSION: Surgical abdomen, ischemic gut, suspected metastatic colon cancer, renal failure, rapidly rising creatinine. Creatinine on the 4th was 4.29, remained elevated. PLAN: IV fluids. Consideration of dialysis. Surgical consultation. Call to Dr. Mendez. Spoke to Dr. Avitia and Dr. Solorio. The patient is also deeply jaundiced. Thank you for this kind referral. MD MARTY Casillas/JOHN /[id number]
[2020-07-30] MEDS: MIDODRINE HCL 5 MG TABLET PO SCH ×2 (11:05→17:31)
[2020-07-30] MEDS: PANTOPRAZOLE 40 MG 10ML VIAL INJ SCH (11:05)
[2020-07-30] MEDS: NOREPINEPHRINE 8 MG/D5W 250 ML 250 ML IV SCH ×2 (11:05→21:15)
--- NOTE | 2020-07-30 14:15 | Diagnostic Imaging Report ---
Exam: KUB - 2 views Indication: NG tube placement Comparison: Chest radiograph of earlier the same day Findings: NG tube with tip and side-port in the stomach. Nonobstructive bowel gas pattern. No free air. Surgical skin carol ann overlie the midline abdomen. Mild left basilar opacities and small left pleural effusion. Impression: NG tube with tip and side-port in the stomach. Signed by: Rafia Rajan MD on 07/30/2020 2:12 PM
[2020-07-30] MEDS: PROPOFOL IV EMULSION 10MG/ML 100 ML IV SCH (16:30)
--- NOTE | 2020-07-30 16:36 | NUR ---
Nutrition Intervention Note RD Recommendation(s) for Physician: -If pt is to remain intubated, consider alternative means of nutrition Plan of Care: RD following, monitoring for tolerance and adequacy Nutrition reason for involvement: Nutrition Risk Trigger RD Assessment (07/30/20) Pt is a 64 year old male admitted with abdominal pain, ascites, cirrhosis, and jaundice. Pt had a procedure yesterday regarding exploratory laparotomy, closure of perforated duodenal ulcer, and liver biopsy. It is also noted that multiple liver masses were found. Pt is currently NPO and intubated; therefore, unable to obtain nutrition history from pt at this time. Per chart, pt had been unable to eat for several days and has experienced some weight loss over several weeks prior to admission. There are no previous weights in chart. Dialysis is also being considered due to acute kidney failure. Will continue to monitor. Principal Problems/Diagnoses: abdominal pain, ascites, cirrhosis, and jaundice PMH: hypertension, recent abdominal pain and distention, weight loss. I/O: 7115/3815 GI: ascitic/tender/firm abdomen Skin: intact Labs: (07/30) Na 138, K 6.0, BUN 52. Cr 4.05, Glu 127, Ca 8.1, AST 5048, ALT 1402 Meds: antibiotic, norepinephrine, protonix, sandostatin, dopamine, propofol, morphine, IV iron, zofran Ht: 74 inches Wt: 181 lbs BMI: 23.2 kg/m2 IBW: 190 lbs Malnutrition Evaluation (07/30/20) Unable to assess at this time. Will re-evaluate at follow-up as appropriate. Energy intake: unable to assess Weight loss: unable to assess Fat loss: unable to evaluate Muscle loss: unable to evaluate Supporting Evidence: Fluid accumulation: no edema in extremities Functional Status: unable to assess Nutrition Prescription (Diet Order): NPO Estimated Nutritional Needs: 9914-3703 calories/day (22-25 kcal/kg CBW) 82-98 g protein/day (1.0-1.2 g pro/kg CBW) Diet Adequacy: Not meeting calorie needs, Not meeting protein needs Tolerance: N/A Diet Education Needs Assessment: Diet education not indicated, pt is intubated Nutrition Care Level: moderate Nutrition Diagnosis: Inadequate oral intake related to decreased ability to consume sufficient energy as evidenced by insufficient intake from diet compared to needs Goal: Patient will meet 75-100% of estimated needs by follow up Progress: N/A Interventions: -recommend alternative means of nutrition if pt is to remain intubated Monitoring/Evaluation: -Total energy intake, Total protein intake, Weight change Signed: Joie Alvarez RD, LD
[2020-07-30 17:25] LABS: ABG HCO3 30 mmol/L (22-26); ABG PCO2 41 mmHg (35-45); ABG PH 7.47 (7.35-7.45); ABG PO2 175 mmHg (80-105); ABG TCO2 31
[2020-07-30] MEDS: IRON SUCROSE 100 MG in SODIUM CHLORIDE 0.9% 100 ML 100 ML IV SCH (17:31)
[2020-07-31] VITALS (16 sets, daily range): BP systolic 85–113; BP diastolic 54–74
[2020-07-31] MEDS: SODIUM BICARBONATE 8.4% 50 ML in DEXTROSE 5%/0.45% SOD CHL 1,000 ML IV SCH ×2 (01:23→17:25)
[2020-07-31] MEDS: PIPERACILLIN/TAZO 2.25 GM 50 ML IV SCH ×4 (03:00→20:27)
[2020-07-31] MEDS: SODIUM CHLORIDE 0.9% 250ML IRRIG IR SCH ×7 (03:00→23:49)
[2020-07-31 04:42] LABS: HEMATOCRIT 32.3 % (38.2-49.6); HEMOGLOBIN 10.4 g/dL (14.0-18.0); MEAN CORPUSCULAR HEMOGLOBIN 28.1 pg (28-32); MEAN CORPUSCULAR HGB CONC 32.2 g/dL (31-35); MEAN CORPUSCULAR VOLUME 87.3 fL (81-99); PLATELET COUNT 248 x10e3/uL (140-360); RED CELL DISTRIBUTION WIDTH 25.2 % (11.7-14.4)
[2020-07-31 05:00] LABS: ALBUMIN 2.8 g/dL (3.5-5.0); ALBUMIN/GLOBULIN RATIO 1.3 (0.8-2.0); ANION GAP 23.4 mmol/L (8-16); CREATININE, SERUM 4.04 mg/dL (0.72-1.25); POTASSIUM 5.4 mmol/L (3.5-5.1)
[2020-07-31 05:50] LABS: ANISOCYTOSIS MODERATE; BAND NEUTROPHILS % (MANUAL) 6 %; HYPOCHROMASIA MODERATE; LYMPHOCYTES % (MANUAL) 7 % (19-48); METAMYELOCYTES % (MANUAL) 3 % (0-0); MICROCYTOSIS MODERATE; MYELOCYTES % (MANUAL) 3 % (0-0); NEUTROPHILS % (MANUAL) 79 % (40-74); NUCLEATED RED BLOOD CELLS 4; PLATELET ESTIMATE ADEQUATE; PLATELET MORPHOLOGY COMMENT NORMAL; POLYCHROMASIA FEW; PROMYELOCYTES % (MANUAL) 2 % (0-0); RBC MORPHOLOGY COMMENT ABNORMAL; TARGET CELLS FEW
[2020-07-31] MEDS: OCTREOTIDE ACETATE 0.1 MG/ML 100MCG AMP SQ SCH ×3 (06:30→20:25)
[2020-07-31] MEDS: MIDODRINE HCL 5 MG TABLET PO SCH ×3 (08:23→16:25)
[2020-07-31] MEDS: HEPARIN SOD (PORCINE) 5,000 UNIT/ML VIAL SC SCH ×2 (09:00→20:27)
[2020-07-31] MEDS: PANTOPRAZOLE 40 MG 10ML VIAL INJ SCH (09:00)
[2020-07-31] MEDS ORDERED: SODIUM CHLORIDE 0.9% 500ML 500 ML IV ONE (09:45)
[2020-07-31] MEDS: IRON SUCROSE 100 MG in SODIUM CHLORIDE 0.9% 100 ML 100 ML IV SCH (11:17)
[2020-07-31] MEDS: ONDANSETRON HCL INJ 2MG/ML 2ML 2 MG/ML VIAL IV PRN ×2 (11:30→19:05)
[2020-07-31] MEDS: MORPHINE SULFATE INJ 4 MG/ML INJ 1ML IV PRN ×2 (11:35→19:05)
[2020-07-31] MEDS ORDERED: DEXTROSE 50% SYRINGE 50 ML IV ONE (13:20)
--- NOTE | 2020-07-31 15:54 | NUR ---
SPOKE WITH PT HE SIGNED CHOICE FOR [facility], FILED IN CHART, NOTIFIED REP TO COME [employer]. SHE WILL MEET THE PT AND THEN CALL SISTER ANTON CHERY [phone]
[2020-07-31] MEDS: NOREPINEPHRINE 8 MG/D5W 250 ML 250 ML IV SCH (23:51)
[2020-08-01] VITALS (21 sets, daily range): BP systolic 48–119; BP diastolic 34–71
[2020-08-01] MEDS: SODIUM BICARBONATE 8.4% 50 ML in DEXTROSE 5%/0.45% SOD CHL 1,000 ML IV SCH ×3 (00:40→19:51)
[2020-08-01] MEDS: PIPERACILLIN/TAZO 2.25 GM 50 ML IV SCH ×4 (02:15→19:43)
[2020-08-01] MEDS: SODIUM CHLORIDE 0.9% 250ML IRRIG IR SCH ×6 (02:15→22:12)
[2020-08-01] MEDS: ONDANSETRON HCL INJ 2MG/ML 2ML 2 MG/ML VIAL IV PRN ×4 (02:43→16:28)
[2020-08-01] MEDS: MORPHINE SULFATE INJ 4 MG/ML INJ 1ML IV PRN ×6 (02:43→18:38)
[2020-08-01 04:43] LABS: BASOPHILS # (AUTO) 0.2 (0.0-0.1); BASOPHILS % 0.9 % (0.0-1.0); EOSINOPHILS % 0.2 % (0.0-6.0); HEMATOCRIT 29.9 % (38.2-49.6); HEMOGLOBIN 9.7 g/dL (14.0-18.0); LYMPHOCYTES # (AUTO) 0.7 (1.0-3.2); LYMPHOCYTES % 3.4 % (18.0-39.1); MEAN CORPUSCULAR HEMOGLOBIN 28.1 pg (28-32); MEAN CORPUSCULAR HGB CONC 32.4 g/dL (31-35); MEAN CORPUSCULAR VOLUME 86.7 fL (81-99); MONOCYTES # (AUTO) 1.2 (0.2-0.8); MONOCYTES % 6.3 % (4.4-11.3); NEUTROPHILS # (AUTO) 15.6 (2.1-6.9); NEUTROPHILS % 80.4 % (38.7-80.0); PLATELET COUNT 210 x10e3/uL (140-360); RED BLOOD COUNT 3.45 x10e6/uL (4.3-5.7); RED CELL DISTRIBUTION WIDTH 25.5 % (11.7-14.4)
[2020-08-01 05:06] LABS: ANION GAP 21.4 mmol/L (8-16); CREATININE, SERUM 3.81 mg/dL (0.72-1.25); POTASSIUM 4.4 mmol/L (3.5-5.1)
[2020-08-01 05:09] LABS: CALCIUM 6.9 mg/dL (8.4-10.2)
[2020-08-01] MEDS: OCTREOTIDE ACETATE 0.1 MG/ML 100MCG AMP SQ SCH ×3 (05:50→22:00)
[2020-08-01] MEDS: MIDODRINE HCL 5 MG TABLET PO SCH ×3 (08:09→16:00)
[2020-08-01] MEDS: PANTOPRAZOLE 40 MG 10ML VIAL INJ SCH (08:09)
[2020-08-01] MEDS: NOREPINEPHRINE 8 MG/D5W 250 ML 250 ML IV SCH (08:12)
[2020-08-01] MEDS: HEPARIN SOD (PORCINE) 5,000 UNIT/ML VIAL SC SCH ×2 (08:15→19:43)
--- NOTE | 2020-08-01 11:50 | NUR ---
Per patient, "I don't care where I , as long as I'm not suffering. I don't want any more drips." Patient made aware that blood pressure is dependent upon dopamine and levophed. Patient and family verbalized understanding. Dr Avitia called, awaiting call back.
--- NOTE | 2020-08-01 12:46 | NUR ---
Dr Avitia returned call, okay to turn off drips at this time. Discussed with patient the importance of the dopamine and levophed at this time, patient verbalized understanding. Patient states, "It's my time, I'm ready if I go in 2 hours or 2 days." Jami ROMAN and Dr Wheeler at bedside as witness. Dopamine and levophed turned off at this time.
--- NOTE | 2020-08-01 13:26 | Progress Note ---
DATE: 08/01/2020 Renal Progress Note SUBJECTIVE: Events over the past 24 hours have been noted. The patient remains on pressors. If the pressures are turned off, his blood pressure drops into the 50s. PHYSICAL EXAMINATION: VITAL SIGNS: Currently, blood pressure 117/71, respiration 10, pulse 94. The patient is on pressors. GENERAL: The patient is somnolent but does arouse HEENT: No increased JVD. CARDIOVASCULAR: Regular rate and rhythm. LUNGS: Decreased breath sounds. The patient is jaundiced. ABDOMEN: Distended. EXTREMITIES: Some trace edema. LABORATORY RESULTS: Sodium 135, potassium 4.4, chloride 97, bicarbonate 21, BUN and creatinine 33 and 3.8 respectively. Calcium is 6.9, albumin is 2.8. IMPRESSION: 1. Metastatic adenocarcinoma. 2. Jaundice. 3. Hepatorenal syndrome. 4. Shock. 5. Hypotension. PLAN: The patient's prognosis is severely limited. The patient is telling the nurse that he actually wants to and actually he wants the vasopressors turned off. There has not been on any dialysis today. His electrolytes are okay. He is also very hypertensive. I do not think he will tolerate dialysis today. He was dialyzed yesterday. I will give him maybe one amp of calcium chloride to replace his calcium. I would recommend hospice for this patient. Ather MD PRIYA Valerio/JOHN /[id number]
[2020-08-01] MEDS: LORAZEPAM INJ 2 MG/ML VIAL IV PRN (14:23)
--- NOTE | 2020-08-01 19:36 | NUR ---
Patient is resting comfortably in the room, sleeping without any distress or pain. Comfort care maintained. Heart rate of 80's and BP 81/46. All IV drips are discontinued.
[2020-08-02] VITALS (14 sets, daily range): BP systolic 47–77; BP diastolic 28–47
[2020-08-02] MEDS: PIPERACILLIN/TAZO 2.25 GM 50 ML IV SCH ×2 (01:36→07:32)
[2020-08-02] MEDS: MORPHINE SULFATE INJ 4 MG/ML INJ 1ML IV PRN ×6 (01:37→20:05)
[2020-08-02] MEDS: SODIUM CHLORIDE 0.9% 250ML IRRIG IR SCH ×3 (02:13→07:55)
[2020-08-02] MEDS: OCTREOTIDE ACETATE 0.1 MG/ML 100MCG AMP SQ SCH (06:00)
[2020-08-02] MEDS: SODIUM BICARBONATE 8.4% 50 ML in DEXTROSE 5%/0.45% SOD CHL 1,000 ML IV SCH ×2 (06:54→11:51)
[2020-08-02] MEDS: NOREPINEPHRINE 8 MG/D5W 250 ML 250 ML IV SCH (07:32)
[2020-08-02] MEDS: MIDODRINE HCL 5 MG TABLET PO SCH ×2 (07:32→11:26)
[2020-08-02] MEDS: PANTOPRAZOLE 40 MG 10ML VIAL INJ SCH ×2 (07:55→11:09)
[2020-08-02] MEDS: HEPARIN SOD (PORCINE) 5,000 UNIT/ML VIAL SC SCH ×3 (07:55→19:58)
--- NOTE | 2020-08-02 12:04 | NUR ---
Bedbath given, linens changed. Patient is comfort care measures per Dr Avitia. Patient resting quietly in bed at this time, no s/s distress noted, no c/o pain at this time.
[2020-08-02] MEDS: ONDANSETRON HCL INJ 2MG/ML 2ML 2 MG/ML VIAL IV PRN ×3 (12:47→20:05)
[2020-08-02] MEDS: LORAZEPAM INJ 2 MG/ML VIAL IV PRN ×2 (13:19→19:58)
[2020-08-03] VITALS (10 sets, daily range): BP systolic 55–65; BP diastolic 33–44
[2020-08-03] MEDS: MORPHINE SULFATE INJ 4 MG/ML INJ 1ML IV PRN (00:27)
[2020-08-03] MEDS: LORAZEPAM INJ 2 MG/ML VIAL IV PRN ×2 (02:40→08:19)
[2020-08-03] MEDS: PANTOPRAZOLE 40 MG 10ML VIAL INJ SCH (08:19)
[2020-08-03] MEDS: HEPARIN SOD (PORCINE) 5,000 UNIT/ML VIAL SC SCH ×2 (08:22→22:39)
--- NOTE | 2020-08-03 12:20 | NUR ---
SPOKE WITH HOSPICE REP AND FAMILY, THE PLAN IS TOMORROW MORNING TO THE [facility].
--- NOTE | 2020-08-03 18:46 | NUR ---
pt has rested throughout shift, with some restlessness. HR and o2 sats remain WNL, BP low. per [facility], pt family has selected hospice company and will be in place tomorrow morning for dc home on hospice. MDs aware of pt declining status and arrangements for dc to hospice.
--- NOTE | 2020-08-03 19:00 | NUR ---
Bedside Report received. Patient in bed with HOB elevated. PUPIL 2-3mm PERRLA Patient able to Move Upper Extremities Patient noted on 2L NC. BP 60/38 MAP 43 HR 73 RR 14 Sat : 95% Safety Maintained. Will Continue to Monitor.
--- NOTE | 2020-08-03 20:35 | NUR ---
Report given to JESSIE GUTIÉRREZ.
--- NOTE | 2020-08-03 22:00 | NUR ---
Patient received as transfer from ICU Rm 189 to Rm 212. Pt alert and oriented x0. Pt aphasic and is only responsive to touch stimuli. Pt sometimes moans when being moved or repositioned in bed. Pt is DNR (i.e. comfort measures only) in care status per MD order. Pt appear very jaundiced in skin color. Escobar catheter in place draining dark brown fluid. Pt appear extremely weak on all extremities especially on BLE. Bed alarm active. Will monitor pt especially vital signs.
--- NOTE | 2020-08-03 22:00 | NUR ---
Pt transferred to 2211. Safety Maintained. Bedside Update given to JESSIE GUTIÉRREZ.
[2020-08-04] VITALS (8 sets, daily range): BP systolic 57–166; BP diastolic 34–76
--- NOTE | 2020-08-04 08:51 | NUR ---
pt moaning, grimacing, appears uncomfortable. spoke with Jordana Melara, sister of patient, and informed her that pt's blood pressure is low at this time and there is risk with giving pain medications at this time, as pt may . Sister states she understands and wants us to do everything in our power to keep him comfortable and wants him to have the medication.
--- NOTE | 2020-08-04 08:54 | NUR ---
SPOKE WITH HOSPICE REP, EQUIPMENT BEING DELIVERED THIS MORNING AND TRANSPORT BEING SET UP BETWEEN 1 AND 2.
--- NOTE | 2020-08-04 10:03 | NUR ---
EDUCATED ABOUT IMM, SIGNED, FILED IN CHART, WITH COPY LEFT WITH FAMILY AT BEDSIDE.
[2020-08-04] MEDS: PANTOPRAZOLE 40 MG 10ML VIAL INJ SCH (10:33)
[2020-08-04] MEDS: HEPARIN SOD (PORCINE) 5,000 UNIT/ML VIAL SC SCH (10:33)
[2020-08-04] MEDS: MORPHINE SULFATE INJ 4 MG/ML INJ 1ML IV PRN (10:34)
--- NOTE | 2020-08-04 12:22 | Discharge Summary ---
PRIMARY CARE PHYSICIAN: Dr. Kamari Quach. CONSULTANTS: 1. Dr. Lazaro Medina. 2. Dr. Mimi Painting. 3. Dr. Herber Mendez. 4. Dr. Lazaro Solorio. 5. Dr. Pankaj Sandoval. FINAL DIAGNOSES: 1. 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 2. 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 3. Perforated duodenal ulcer associated with acute peritonitis, status post surgical repair. 4. Sepsis with shock due to acute peritonitis. 5. Acute renal failure. SUMMARY: A 64 years old male, came to the hospital with jaundice and abdominal distention associated with severe pain, ascites, and acute renal failure. CT scan of abdomen and pelvis at this time showed significant liver metastasis lesion and also thickening colon as well. The patient's blood pressure was adequate at this time. The patient's abdominal pain increased in intensity. The patient apparently with a CT scan showed that he had a perforated hollow viscus, peritonitis, multiple liver metastasis and subsequently underwent exploratory laparotomy by Dr. Lazaro Solorio on July 29, 2020, subsequent closure of the perforated duodenal ulcer with omental patch wedge biopsy of the liver mass that was done as well. The pathology came back to be poorly differentiated adenocarcinoma. The cells may be secondary to possible likely adenocarcinoma of the upper GI tract versus pancreatobiliary adenocarcinoma, but less likely from the lung. The patient progressively declined with the acute peritonitis. He was on the ventilator support and then subsequently extubated. He continued to be awake and with significant pain. Pressure support subsequently withdrawn due to patient request for comfort measure. Consult [facility] for going home for comfort measure. The patient and family are preparing for patient to go home. The lab work: The CA-19-9 showed [id number], quite significantly elevated. The CA-125 was 326. The CEA is 1537. The patient will be going home with [facility] today for comfort measure. We will arrange for transportation as well as going home with durable medical equipment. Once hospice is ready and family is ready, the patient will be discharged to home for comfort measures today. Note sent to primary care physician. MD VINCE Reynoso/JOHN /[id number]
== END 2020-08-04 15:39 | DRG 853 ==
LOC: ER 10:45 → ERHOLD 13:09 → MED/SURG 15:38 → ICU 07-29 09:11 → MED/SURG2 08-03 22:09
PROVIDERS: ADMIT Internal Medicine; ATTEND Internal Medicine
PROC: 02HV33Z Insertion of Infusion Device into Superior Vena Cava, Percutaneous Approach (ICD-10-PCS; 2020-07-28)
PROC: 5A1935Z Respiratory Ventilation, Less than 24 Consecutive Hours (ICD-10-PCS; 2020-07-29)
PROC: 0BH17EZ Insertion of Endotracheal Airway into Trachea, Via Natural or Artificial Opening (ICD-10-PCS; 2020-07-29)
PROC: 0FB00ZX Excision of Liver, Open Approach, Diagnostic (ICD-10-PCS; 2020-07-29)
PROC: 5A1D70Z Performance of Urinary Filtration, Intermittent, Less than 6 Hours Per Day (ICD-10-PCS; 2020-07-29)
PROC: 0DU907Z Supplement Duodenum with Autologous Tissue Substitute, Open Approach (ICD-10-PCS; principal; 2020-07-29 12:00)
DX: A41.9 Sepsis, unspecified organism (principal); R65.21 Severe sepsis with septic shock; K26.5 Chronic or unspecified duodenal ulcer with perforation; K65.9 Peritonitis, unspecified; N17.9 Acute kidney failure, unspecified; R18.0 Malignant ascites; C18.9 Malignant neoplasm of colon, unspecified; C78.7 Secondary malignant neoplasm of liver and intrahepatic bile duct; E87.2 Acidosis; R16.0 Hepatomegaly, not elsewhere classified; R19.8 Other specified symptoms and signs involving the digestive system and abdomen; E87.5 Hyperkalemia; Z66 Do not resuscitate
CPT/HCPCS: 36415; 36556; 36600; 71045; 71250; 74018; 74176; 74181; 74470; 76937; 77001; 80048; 80053; 81001; 82105; 82150; 82248; 82378; 82550; 82553; 82728; 82805; 83540; 83605; 83615; 83690; 83735; 84300; 84466; 84484; 85007; 85025; 85027; 85610; 85730; 86301; 86304; 86704; 86705; 86706; 87040; 87071; 87075; 87086; 87205; 87340; 88307; 88342; 93005; 94002; 94003; 99285; J0330; J0692; J1100; J1644; J1756; J2001; J2060; J2270; J2354; J2405; J2543; J3010; J3370; J7030; J7040; J7799; P9047; U0002